=== PATIENT | female | born 1950 | race Caucasian/White ===

== ENCOUNTER 2020-02-11 05:20 | Day surgery (SDC) | payer OTHER ==
[2020-02-03 10:46] VITALS: BMI 23.3
[2020-02-11] MEDS ORDERED: LIDOCAINE HCL/PF 1% SDV 5ML VIAL ONE (07:16)
[2020-02-11] MEDS ORDERED: CHONDROITIN SU A/HYALUR SOD 1 KIT ONE (07:16)
[2020-02-11] MEDS ORDERED: LIDOCAINE HCL 4% PRESERVE-FREE 5 ML AMP ONE (07:16)
[2020-02-11] MEDS ORDERED: POVIDONE-IODINE 5% OPHTHALMIC PREP 30 ML SOLUTION ONE (07:58)
[2020-02-11] MEDS ORDERED: BSS (NA/CA/MG/K) BALANCED SALT SOLUTION OPHTH SOLN 15 ML BOTTLE ONE (07:58)
[2020-02-11] MEDS: FLURBIPROFEN 0.03% OPHTH SOLN 2.5 ML BOTTLE OP SCH ×3 (08:00→09:10)
[2020-02-11] MEDS: TROPICAMIDE 1% OPHTH SOLN 15 ML BOTTLE ONE ×3 (08:00→09:10)
[2020-02-11] MEDS: PHENYLEPHRINE 2.5% OPHTH SOLN 15 ML BOTTLE OP SCH ×3 (08:00→09:10)
[2020-02-11] MEDS: CYCLOPENTOLATE HCL 1% OPHTH SOLN 2 ML BOTTLE OP SCH ×3 (08:00→09:10)
[2020-02-11] MEDS: CIPROFLOXACIN HCL 0.3% OPHTH 2.5ML BOTTLE OP SCH ×3 (08:00→09:10)
[2020-02-11] MEDS ORDERED: TROPICAMIDE 1% OPHTH SOLN 15 ML BOTTLE OP SCH (09:00)
[2020-02-11] MEDS ORDERED: MIDAZOLAM HCL 2 MG/2 ML SINGLE DOSE VIAL ONE (09:06)
[2020-02-11] MEDS ORDERED: LIDOCAINE HCL 4% TOPICAL SOLN (50 ML/BOTTLE) TP ONE (09:58)
[2020-02-11] MEDS ORDERED: POVIDONE-IODINE 5% OPHTHALMIC PREP 30 ML SOLUTION OS ONE (09:59)
[2020-02-11] MEDS ORDERED: LIDOCAINE HCL 1% PRESERVATIVE FREE - 30ML VIAL IO ONE (10:08)
[2020-02-11] MEDS ORDERED: CHONDROITIN SU A/HYALUR SOD 1 KIT IO ONE (10:08)
[2020-02-11] MEDS ORDERED: BSS (NA/CA/MG/K) BALANCED SALT SOLUTION OPHTH SOLN 15 ML BOTTLE OS ONE (10:08)
[2020-02-11] MEDS ORDERED: EPINEPHrine/PF 1 MG/1 ML (1:1,000) AMPULE SQ ONE (10:15)
[2020-02-11] MEDS ORDERED: ACETAMINOPHEN 325 MG TABLET (FP) ONE (11:18)
[2020-02-11 14:49] VITALS: BP 112/60; PULSE 70; TEMP 97.6
--- NOTE | 2020-02-12 15:38 | OP ---
DATE OF OPERATION: 02/11/2020 PREOPERATIVE DIAGNOSIS: Cataract, left eye. POSTOPERATIVE DIAGNOSIS: Cataract, left eye. PROCEDURE: Planned phacoemulsification with placement of posterior chamber lens implantation, left eye. ANESTHESIA: Topical. SURGEON: eNreyda Crowley MD PRISON LIBRARIAN: None. COMPLICATIONS INTRAOPERATIVELY: None. DESCRIPTION OF PROCEDURE: Patient underwent uncomplicated cataract surgery. Speculum was inserted into the left eye after the patient was prepped and draped for usual sterile ophthalmic surgery. The patient then had a peripheral side port incision made. Preservative-lidocaine followed by Viscoat was inserted into the anterior chamber. A temporal incision was then made self-sealing. A 360-degrees capsulorrhexis was then performed. The nucleus was then dislocated with hydrodissection. The nucleus was removed from the eye in uncomplicated fashion. Then the epinucleus and the cortex were removed from the eye. The capsule was polished and the viscoelastic filled the bag where an intraocular lens implant 22.5 SN60WF was placed and well centered. The remaining viscoelastic was removed from the eye. The wound was hydrated and well-sealed. This completed this portion of the surgery in uncomplicated fashion. It should be noted that the oculars of the microscope were fogging after initiating the case and multiple attempts by Anesthesia to help correct the N95 mask that Dr. Crowley, the surgeon was using and the topical mask of the on top of that with the eye shield. However, the oculars continued to fog. At this point large sterile gloves were placed over her 6.5 sterile gloves and the mask was adjusted by Dr. Crowley. However, it was not noted by Dr. Crowley nor the certified dental assistant scrub nurse or the anesthesiologist that for a few minutes into the case the gloves were left on as the handles of some of the instruments were used to slate picker the instrumentation and continue the surgery. When this was discovered, naturally the gloves were removed in a fashion leaving the sterile 6.5 gloves on. It was felt after evaluating the entire case with the scrub nurse that the tips of all the instruments that were actually placed into the patient's eye were never exposed and care was taken to keep the field sterile at that point on. The patient was informed at the end of the case of what had occurred. An additional culture had been taken of the lashes and conjunctiva at the end of the case and the patient will be watched very closely for any onset of postoperative infection. NEREYDA CROWLEY M.D. JILLIAN/[id number]
== END 2020-02-11 12:30 | disposition home or self-care (01) ==
LOC: JASU-SURG 05:20
PROVIDERS: ATTEND Ophthalmology
PROC: 08RK3JZ Replacement of Left Lens with Synthetic Substitute, Percutaneous Approach (ICD-10-PCS; principal; 2020-02-11 09:00)
DX: H26.9 Unspecified cataract (principal)
CPT/HCPCS: 87070; 87205

== ENCOUNTER → 2020-03-24 | Day surgery (SDC) | payer OTHER ==
[~2020-03-24] MED LIST: CIPROFLOXACIN HCL 0.3% OPHTH 2.5ML BOTTLE OP SCH; CYCLOPENTOLATE HCL 1% OPHTH SOLN 2 ML BOTTLE OP SCH; FLURBIPROFEN 0.03% OPHTH SOLN 2.5 ML BOTTLE OP SCH; PHENYLEPHRINE 2.5% OPHTH SOLN 15 ML BOTTLE OP SCH; TROPICAMIDE 1% OPHTH SOLN 15 ML BOTTLE OP SCH
== END | disposition home or self-care (01) ==
LOC: JASU-SURG 06:00
PROVIDERS: ATTEND Ophthalmology
DX: Z53.8 Procedure and treatment not carried out for other reasons (principal)

== ENCOUNTER 2021-02-09 04:35 | Day surgery (SDC) | payer OTHER ==
[2021-02-05 09:04] VITALS: BMI 22.4
[~2021-02-09 04:35] MED LIST changes: -CIPROFLOXACIN HCL 0.3% OPHTH 2.5ML BOTTLE OP SCH; -CYCLOPENTOLATE HCL 1% OPHTH SOLN 2 ML BOTTLE OP SCH; +EPINEPHrine/PF 1 MG/1 ML (1:1,000) AMPULE SQ ONE; -FLURBIPROFEN 0.03% OPHTH SOLN 2.5 ML BOTTLE OP SCH; -PHENYLEPHRINE 2.5% OPHTH SOLN 15 ML BOTTLE OP SCH; -TROPICAMIDE 1% OPHTH SOLN 15 ML BOTTLE OP SCH
[2021-02-09] MEDS ORDERED: CYCLOPENTOLATE HCL 1% OPHTH SOLN 2 ML BOTTLE ONE (06:25)
[2021-02-09] MEDS ORDERED: CIPROFLOXACIN 0.3% EYE DROPS 5 ML BOTTLE ONE (06:25)
[2021-02-09] MEDS ORDERED: TROPICAMIDE 1% OPHTH SOLN 15 ML BOTTLE ONE (06:25)
[2021-02-09] MEDS ORDERED: FLURBIPROFEN 0.03% OPHTH SOLN 2.5 ML BOTTLE ONE (06:26)
[2021-02-09] MEDS ORDERED: CYCLOPENTOLATE HCL 1% OPHTH SOLN 2 ML BOTTLE OP SCH (07:00)
[2021-02-09] MEDS ORDERED: CYCLOPENTOLATE HCL 1% OPHTH SOLN 2 ML BOTTLE OD ONE ×3 (07:00→07:10)
[2021-02-09] MEDS ORDERED: CIPROFLOXACIN 0.3% EYE DROPS 5 ML BOTTLE OD ONE ×3 (07:00→07:10)
[2021-02-09] MEDS ORDERED: TROPICAMIDE 1% OPHTH SOLN 15 ML BOTTLE OP SCH (07:00)
[2021-02-09] MEDS ORDERED: CIPROFLOXACIN HCL 0.3% OPHTH 2.5ML BOTTLE OP SCH (07:00)
[2021-02-09] MEDS ORDERED: TROPICAMIDE 1% OPHTH SOLN 15 ML BOTTLE OD ONE ×3 (07:00→07:10)
[2021-02-09] MEDS ORDERED: FLURBIPROFEN 0.03% OPHTH SOLN 2.5 ML BOTTLE OP SCH (07:00)
[2021-02-09] MEDS ORDERED: FLURBIPROFEN 0.03% OPHTH SOLN 2.5 ML BOTTLE OD ONE ×3 (07:00→07:10)
[2021-02-09] MEDS ORDERED: MIDAZOLAM HCL 2 MG/2 ML SINGLE DOSE VIAL ONE (07:13)
[2021-02-09] MEDS ORDERED: EPINEPHrine/PF 1 MG/1 ML (1:1,000) AMPULE ONE (07:40)
[2021-02-09] MEDS ORDERED: LIDOCAINE HCL/PF 1% SDV 5ML VIAL ONE (07:40)
[2021-02-09] MEDS ORDERED: LIDOCAINE HCL 4% PRESERVE-FREE 5 ML AMP ONE (07:40)
[2021-02-09] MEDS ORDERED: POVIDONE-IODINE 5% OPHTHALMIC PREP 30 ML SOLUTION ONE (07:45)
[2021-02-09] MEDS ORDERED: LIDOCAINE HCL 4% PRESERVE-FREE 5 ML AMP TP ONE (08:20)
[2021-02-09] MEDS ORDERED: POVIDONE-IODINE 5% OPHTHALMIC PREP 30 ML SOLUTION OD ONE (08:28)
[2021-02-09] MEDS ORDERED: BSS (NA/CA/MG/K) BALANCED SALT SOLUTION OPHTH SOLN 15 ML BOTTLE IO ONE (08:30)
[2021-02-09] MEDS ORDERED: LIDOCAINE HCL 1% PRESERVATIVE FREE - 30ML VIAL IO ONE (08:32)
[2021-02-09] MEDS ORDERED: CHONDROITIN SU A/HYALUR SOD 1 KIT IO ONE ×2 (08:34→08:56)
[2021-02-09] MEDS ORDERED: EPINEPHrine/PF 1 MG/1 ML (1:1,000) AMPULE SQ ONE (08:52)
[2021-02-09] MEDS ORDERED: TOBRAMYCIN/DEXAMETHASONE OPHTH. OINTMENT 1 TUBE ONE (09:15)
[2021-02-09] MEDS ORDERED: TOBRAMYCIN/DEXAMETHASONE OPHTH. OINTMENT 1 TUBE TP ONE (09:17)
[2021-02-09 10:12] VITALS: TEMP 97.7
[2021-02-09] MEDS ORDERED: ACETAMINOPHEN 325 MG TABLET (FP) ONE (10:44)
[2021-02-09] MEDS ORDERED: ACETAMINOPHEN 325 MG TABLET (FP) PO ONE (10:52)
[2021-02-09 10:54] VITALS: BP 150/84; PULSE 80
== END 2021-02-09 12:05 | disposition home or self-care (01) ==
LOC: JASU-SURG 04:35
PROVIDERS: ATTEND Ophthalmology
PROC: 08RK3JZ Replacement of Left Lens with Synthetic Substitute, Percutaneous Approach (ICD-10-PCS; principal; 2021-02-09 08:00)
DX: H26.9 Unspecified cataract (principal)

== ENCOUNTER 2023-02-14 05:15 | Day surgery (SDC) | payer OTHER ==
[2023-02-13 16:31] VITALS: BMI 21.6
[~2023-02-14 05:15] MED LIST changes: +DEXAMETHASONE SOD PHOSPHATE 10 MG/1 ML VIAL IM ONE; -EPINEPHrine/PF 1 MG/1 ML (1:1,000) AMPULE SQ ONE; +IOHEXOL 180 MG/1 ML ML IJ ONE; +LIDOCAINE HCL 1% PRESERVATIVE FREE - 30ML VIAL IJ ONE
[2023-02-14] MEDS ORDERED: LIDOCAINE HCL/PF 1% SDV 5ML VIAL ONE (07:24)
[2023-02-14] MEDS ORDERED: DEXAMETHASONE SOD PHOSPHATE 10 MG/1 ML VIAL ONE (07:24)
[2023-02-14] MEDS ORDERED: LIDOCAINE HCL 1% PRESERVATIVE FREE - 30ML VIAL IJ ONE (13:23)
[2023-02-14] MEDS ORDERED: DEXAMETHASONE SOD PHOSPHATE 10 MG/1 ML VIAL IM ONE (13:25)
[2023-02-14] MEDS ORDERED: IOHEXOL 180 MG/1 ML ML IJ ONE (13:25)
[2023-02-14 13:51] VITALS: BP 135/76; PULSE 78; RESP 18; TEMP 97.3
[2023-02-14] MEDS ORDERED: ACETAMINOPHEN 500 MG TABLET (FP) PO PRN (13:58)
== END 2023-02-14 14:30 | disposition home or self-care (01) ==
LOC: JASU-SURG 05:15
PROVIDERS: ATTEND Pain Medicine Pain Medicine
PROC: 3E0R3BZ Introduction of Anesthetic Agent into Spinal Canal, Percutaneous Approach (ICD-10-PCS; 2023-02-14)
PROC: 3E0R33Z Introduction of Anti-inflammatory into Spinal Canal, Percutaneous Approach (ICD-10-PCS; principal; 2023-02-14 12:00)
DX: M48.061 Spinal stenosis, lumbar region without neurogenic claudication (principal); M54.16 Radiculopathy, lumbar region
CPT/HCPCS: 76000-TC-FY; J1100

== ENCOUNTER 2023-10-08 05:23 | Emergency (ER) | payer OTHER ==
[2023-10-08 06:01] VITALS: BP 144/80; PULSE 90; RESP 20; TEMP 98.7; BMI 26.5
== END 2023-10-08 07:31 | disposition home or self-care (01) ==
LOC: JER 05:23
DX: H61.23 Impacted cerumen, bilateral (principal); H91.93 Unspecified hearing loss, bilateral
CPT/HCPCS: 70450-TC; 70486-TC; 99284-25

== ENCOUNTER 2024-02-03 11:52 | Emergency (ER) | payer OTHER ==
[2024-02-03 12:10] VITALS: BP 150/82; PULSE 96; RESP 20; TEMP 99; BMI 23.3
[2024-02-03] MEDS ORDERED: ACETAMINOPHEN 325 MG TABLET (FP) ONE (13:09)
[2024-02-03] MEDS ORDERED: DIPHTH,PERTUSS(ACELL),TET 0.5 ML DISP.SYRIN IM ONE (13:10)
[2024-02-03] MEDS: ACETAMINOPHEN 500 MG TABLET (FP) PO ONE (13:19)
[2024-02-03] MEDS: DIPHTH,PERTUSS(ACELL),TET 0.5 ML DISP.SYRIN IM ONE (13:20)
[2024-02-03] MEDS: TETANUS AND DIPHTHERIA TOXOID 0.5 ML DISP.SYRIN IM ONE (13:23)
== END 2024-02-03 17:30 | disposition left against medical advice (07) ==
LOC: JER 11:52
PROC: 3E0234Z Introduction of Serum, Toxoid and Vaccine into Muscle, Percutaneous Approach (ICD-10-PCS; principal; 2024-02-03)
DX: S00.83XA Contusion of other part of head, initial encounter (principal); W20.8XXA Other cause of strike by thrown, projected or falling object, initial encounter; Z23 Encounter for immunization
CPT/HCPCS: 70450-TC; 70486-TC; 90471; 90715; 99284-25

== ENCOUNTER 2024-04-18 10:58 | Emergency (ER) | payer OTHER ==
[2024-04-18 11:08] VITALS: BP 156/85; PULSE 98; RESP 16; TEMP 97.6; BMI 22.4
[2024-04-18] MEDS ORDERED: ONDANSETRON 4 MG/2 ML VIAL ONE ×2 (12:14→12:24)
[2024-04-18] MEDS ORDERED: MAG HYDROX/AL HYDROX/SIMETH 30 ML UNIT-DOSE CUP ONE (12:14)
[2024-04-18] MEDS ORDERED: FAMOTIDINE 20 MG TABLET ONE (12:14)
[2024-04-18] MEDS: SODIUM CHLORIDE 0.9% 500 ML INFUS.BAG IV ONE (12:54)
[2024-04-18] MEDS: ONDANSETRON 4 MG/2 ML VIAL IVPUSH ONE (12:54)
[2024-04-18] MEDS: FAMOTIDINE 20 MG TABLET PO ONE (12:59)
[2024-04-18] MEDS: MAG HYDROX/AL HYDROX/SIMETH -MYLANTA- ORAL SUSPENSION PO ONE (12:59)
[2024-04-18 13:22] LABS: EOS % 0.5 % (0-4.5); HEMATOCRIT 47.3 % (32.4-45.2); HEMOGLOBIN 15.4 GM/dL (10.7-15.3); MCH 29.2 pg (25.7-33.7); MCHC 32.5 g/dl (32.0-36.0); MEAN CELL VOLUME 89.8 fl (80-96); MONO % 6.8 % (3.8-10.2); NEUT % 71.7 % (42.8-82.8); PLATELET COUNT 414 10^3/uL (134-434); RBC 5.27 M/mm3 (3.60-5.2); WHITE BLOOD COUNT 10.7 K/mm3 (4.0-10.0)
[2024-04-18 13:29] LABS: CALCIUM 9.9 mg/dL (8.5-10.1)
[2024-04-18 13:30] LABS: ALBUMIN 4.4 g/dl (3.4-5.0); BLOOD UREA NITROGEN 5.2 mg/dL (7-18)
[2024-04-18 13:33] LABS: CREATININE 1.1 mg/dL (0.55-1.3)
[2024-04-18 13:34] LABS: BILIRUBIN,TOTAL 0.4 mg/dL (0.2-1); TOT PROT 7.9 g/dl (6.4-8.2)
[2024-04-18] MEDS: POTASSIUM CHLORIDE ORAL LIQUID 20 MEQ/15 ML PO ONE (16:37)
== END 2024-04-18 16:38 | disposition left against medical advice (07) ==
LOC: JER 10:58 → JERFT 10:58 → JER 16:38
PROC: 3E033GC Introduction of Other Therapeutic Substance into Peripheral Vein, Percutaneous Approach (ICD-10-PCS; principal; 2024-04-18)
DX: R10.9 Unspecified abdominal pain (principal); R11.0 Nausea; R19.7 Diarrhea, unspecified; R50.9 Fever, unspecified; Z20.822 Contact with and (suspected) exposure to COVID-19
CPT/HCPCS: 0241U-QW; 36415; 76705-TC; 80053; 83735; 84484; 85025; 93005; 93010; 99285-25